=== PATIENT | male | born 1965 | race Caucasian/White ===

== ENCOUNTER 2016-12-30 23:56 | Emergency (ER) | payer OTHER ==
[~2016-12-30] VITALS: Ht 180.3 cm; Wt 70.0 kg
[~2016-12-30 23:56] MED LIST: OXYC-360 PO; Z.0.NO CURRENT MEDS
[2016-12-30 23:57] VITALS: BP 190/102; PULSE 82; RESP 20; TEMP 98.1; O2SAT 98
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
[2016-12-31] MEDS ORDERED: KETOROLAC TROMETHAMINE 60 MG/2 ML (IM) VIAL IM ONE (00:30)
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
[2016-12-31] MEDS ORDERED: NORC5TAB PO (01:10)
== END 2016-12-31 01:31 | disposition home or self-care (01) ==
LOC: NEPD 23:56
DX: S70.01XA Contusion of right hip, initial encounter (principal); J45.909 Unspecified asthma, uncomplicated; W22.8XXA Striking against or struck by other objects, initial encounter; Y92.39 Other specified sports and athletic area as the place of occurrence of the external cause
CPT/HCPCS: 73502; 96372; 99284; J1885